=== PATIENT | male | born 1995 | race Asian ===

== ENCOUNTER 2020-10-04 23:47 | Emergency (ER) | payer OTHER ==
[~2020-10-04] VITALS: Ht 193 cm; Wt 81.6 kg
[2020-10-05 00:49] VITALS: BP 112/75; TEMP 98.4
== END 2020-10-05 00:49 | disposition home or self-care (01) ==
LOC: ED 23:47
DX: J02.9 Acute pharyngitis, unspecified (principal); Z20.822 Contact with and (suspected) exposure to COVID-19
CPT/HCPCS: 87635; 87651; 99283; U0003